=== PATIENT | male | born 1960 | race Caucasian/White ===

== ENCOUNTER 2025-03-19 06:11 | Day surgery (SDC) | payer OTHER, SELFPAY ==
[2025-03-12 14:13] VITALS: BMI 35.1
[2025-03-12 14:48] LABS: ALT (SGPT) 31 U/L (0-50); AST (SGOT) 26 U/L (17-59); Albumin 4.5 g/dl (3.5-5.0); Alkaline Phosphatase 69 U/L (38-126); Blood Urea Nitrogen 13 mg/dl (9-20); Calcium 9.5 mg/dl (8.4-10.2); Carbon Dioxide 27 mmol/L (22-30); Chloride 104 mmol/L (98-107); Estimated Creatinine Clearance 100 ml/min; Glucose 90 mg/dl (70-99); Potassium 5.0 mmol/L (3.5-5.1); Sodium 138 mmol/L (135-145); Total Protein 7.4 g/dl (6.3-8.2); eGFR > 60.00
[2025-03-19] VITALS (7 sets, daily range): BP systolic 119–145; BP diastolic 77–94; BMI 35.1
[2025-03-19] MEDS: CELEBREX 200 MG PO (09:32)
[2025-03-19] MEDS: NORMOSOL-R/PLASMALYTE-A 1000 IV (09:32)
[2025-03-19] MEDS: TYLENOL 1000 MG PO (09:32)
[2025-03-19] MEDS: DILAUDID 0.25 MG IV (13:20)
== END 2025-03-19 14:12 | disposition home or self-care (01) ==
LOC: SDS 06:11
PROVIDERS: ATTENDING PHYSICIAN Orthopaedic Surgery; FAMILY PHYSICIAN Internal Medicine
DX: S83.232A Complex tear of medial meniscus, current injury, left knee, initial encounter (principal); X58.XXXA Exposure to other specified factors, initial encounter
CPT/HCPCS: 29881; 36415; 80053; 93005